=== PATIENT | male | born 1945 | race Caucasian/White ===

== ENCOUNTER 2020-06-04 09:52 | Emergency (ER) | payer OTHER, MEDICARE, SELFPAY ==
[~2020-06-04] VITALS: Ht 175.3 cm; Wt 95.3 kg
[~2020-06-04 09:52] MED LIST: AUGMENTIN 875-1 EACH PO; COZAAR25 M1 PO; DITROPAN XL5 MG PO; DYRENIUM50 MG PO; ELIQUIS2.5 MG PO; FLO4 PO; GLIMEPIRIDE1 M1 GT; GRALISE600 MG PO; LAMOTRIGINE5 MG PO; LEXAPRO5 M1 PO; MELATONIN1 MG PO; NOR5 PO; NOVAPLUS LIDOCAINE5% TD
[2020-06-04 10:01] VITALS: Ht 175.3 cm; Wt 95.3 kg
[2020-06-04 11:06] LABS: BASOPHIL % 0.3 % (0.2-1.5); PLATELET COUNT 266 x10^3mcL (152-348)
[2020-06-04 11:20] LABS: CALCIUM 9.6 mg/dL (8.5-10.1); CARBON DIOXIDE 19.6 mmol/L (21-32); CHLORIDE SERUM 104 mmol/L (98-107); CREATININE SERUM 2.2 mg/dL (0.7-1.3); GLUCOSE SERUM 197 mg/dL (74-106); POTASSIUM SERUM 4.7 mmol/L (3.5-5.1); SODIUM SERUM 136 mmol/L (136-145)
[2020-06-04 11:24] LABS: ALKALINE PHOSPHATASE 130 U/L (46-116); ALT/SGPT 31 U/L (16-63); AST/SGOT 13 U/L (15-37); BILIRUBIN TOTAL 0.4 mg/dL (0.20-1.00); TOTAL PROTEIN, SERUM 7.5 g/dL (6.4-8.2)
[2020-06-04 14:11] VITALS: BP 155/108
== END 2020-06-04 14:11 | disposition admitted as inpatient to this hospital (09) ==
LOC: ED 09:52
PROVIDERS: Emergency Medicine
DX: I63.9 Cerebral infarction, unspecified (principal); E11.22 Type 2 diabetes mellitus with diabetic chronic kidney disease; I12.9 Hypertensive chronic kidney disease with stage 1 through stage 4 chronic kidney disease, or unspecified chronic kidney disease; N18.9 Chronic kidney disease, unspecified; I48.91 Unspecified atrial fibrillation; E78.5 Hyperlipidemia, unspecified; F31.9 Bipolar disorder, unspecified; Z20.828 Contact with and (suspected) exposure to other viral communicable diseases
CPT/HCPCS: 82962; 83880; Q9967